=== PATIENT | female | born 1970 | race Caucasian/White ===

== ENCOUNTER 2017-08-22 09:48 | Emergency (ER) | payer OTHER ==
[2017-08-22] MEDS ORDERED: LIDOCAINE 1% MDV 20ML VIAL As Ordered (10:08)
[2017-08-22] MEDS: LIDOCAINE 1% MDV 20ML VIAL SC (10:20)
== END 2017-08-22 10:43 | disposition home or self-care (01) ==
LOC: M ED 09:48
DX: S01.01XA Laceration without foreign body of scalp, initial encounter (principal); W22.8XXA Striking against or struck by other objects, initial encounter; Y92.9 Unspecified place or not applicable; Y93.01 Activity, walking, marching and hiking; Y99.0 Civilian activity done for income or pay; J30.2 Other seasonal allergic rhinitis; E03.9 Hypothyroidism, unspecified; F41.9 Anxiety disorder, unspecified; Z79.899 Other long term (current) drug therapy
CPT/HCPCS: 12001